=== PATIENT | female | born 1980 | race Caucasian/White ===

== ENCOUNTER 2022-07-12 20:06 | Observation (INO) | payer OTHER, SELFPAY ==
--- NOTE | ~2022-07-12 | CT_ITS ---
EXAMINATION: CT abdomen pelvis w con INDICATION: Epigastric pain TECHNIQUE: Computed tomographic images of the abdomen and pelvis were obtained after the administrati on of 100 cc of Omnipaque 350 intravenous contrast. The dose-length product (DLP) was 327.88 mGy-cm. Automated exposure control and iterative reconstruction technique were employed. COMPARISON: 05/20/2019 FINDINGS: The lung bases are clear. The heart size is normal. The liver is diffusely low in attenuati on when compared with the spleen, consistent with hepatic steatosis. Stones are present in the nondis tended gallbladder. The spleen, pancreas, and adrenal glands are normal. The kidneys are unremarkable . No pathologically enlarged abdominal or pelvic lymph nodes are identified. There is no free intrape ritoneal gas or evidence of bowel obstruction. There is a small fat-containing umbilical hernia. IMPRESSION: 1. Cholelithiasis without evidence of cholecystitis. 2. Diffuse hepatic steatosis. Reviewed, dictated and finalized at location A.
--- NOTE | ~2022-07-12 | XR_ITS ---
EXAMINATION: XR chest 2V DATE: 07/12/2022 21:22 INDICATION: Chest pain TECHNIQUE: PA and lateral views of the chest are obtained. COMPARISON: None available FINDINGS: The lungs are free of acute opacities. No pleural effusion or pneumothorax. The cardiomedia stinal silhouette is normal. The visualized bones and soft tissues are unremarkable. IMPRESSION: 1. No acute cardiopulmonary abnormality. Reviewed, dictated and finalized at location A.
--- NOTE | ~2022-07-12 | US_ITS ---
EXAMINATION: US abdomen limited DATE: 07/14/2022 15:22 INDICATION: Cholelithiasis, abdominal pain TECHNIQUE: Multiple grayscale and Doppler ultrasound images of the abdomen were obtained. COMPARISON: CT, 07/12/2022 FINDINGS: Bowel gas obscures visualization of the pancreas. The visualized portions of the pancreas a re unremarkable. The liver demonstrates increased echogenicity, heterogenous echotexture, and decreas ed through transmission. No surface nodularity. Normal hepatopetal flow in the main portal vein. Ston es are present in the nondistended gallbladder. There is no gallbladder wall thickening or pericholec ystic fluid. The normal common bile duct measures 4 mm. There was no sonographic Thrasher sign although sensitivity is limited by pain medication. IMPRESSION: 1. Cholelithiasis without additional findings of cholecystitis. 2. Diffuse hepatic steatosis. Reviewed, dictated and finalized at location A.
[2022-07-12 20:08] VITALS: BP 145/87; PULSE 99; RESP 18; TEMP 36.4; O2SAT 100
--- NOTE | 2022-07-12 20:25 | ED.ABDPAIN ---
HPI - Abdominal Pain General Chief Complaint: Abdominal Pain <TOBY Cruz Last Filed: 07/12/22 23:36> Stated Complaint: Epigastric pain, vomiting <TOBY Cruz Last Filed: 07/12/22 23:36> Time Seen by Provider: 07/12/22 20:16 <TOBY Cruz Last Filed: 07/12/22 23:36> Source: patient <TOBY Cruz Last Filed: 07/12/22 23:36> Mode of arrival: ambulatory <TOBY Cruz Last Filed: 07/12/22 23:36> Limitations: no limitations <TOBY Cruz Last Filed: 07/12/22 23:36> History of Present Illness HPI narrative: This is a 42 year old female that presents to the ER for epigastric pain ongoing over the last couple of weeks. Reports it is burning in nature. Worse after eating. Reports nausea and vomiting. Reports history of alcohol abuse and she hasn't had a drink since this morning. Reports tremors, anxiety and sweating. Denies fever. <TOBY Cruz Last Filed: 07/12/22 23:36> Related Data Home Medications: Home Medications Medication Instructions Recorded Confirmed gabapentin 100 mg capsule 300 mg PO TID 07/13/22 07/13/22 metoprolol succinate 25 mg 25 mg PO DAILY 07/13/22 07/13/22 tablet,extended release 24 hr <TOBY Cruz Last Filed: 07/12/22 23:36> Allergies/Adverse Reactions: Allergies Allergy/AdvReac Type Severity Reaction Status Date / Time metoclopramide Allergy Unknown Confusion Verified 07/13/22 01:42 <TOBY Cruz Last Filed: 07/12/22 23:36> Review of Systems Review of Systems: CONSTITUTIONAL: Denies fever CARDIOVASCULAR: Reports chest pain RESPIRATORY: Denies dyspnea. GASTROINTESTINAL: Reports abdominal pain, nausea, vomiting PSYCHIATRIC: Reports anxiety <TOBY Cruz Last Filed: 07/12/22 23:36> All systems reviewed & are unremarkable except as noted in HPI and below <Shyla Curiel PA-C - Last Filed: 07/12/22 23:36> [facility] Past Medical History Medical History: Medical History (Updated 07/12/22 @ 23:32 by Shyla Curiel PA-C) History of alcohol abuse History of hypertension <Shyla Curiel PA-C - Last Filed: 07/12/22 23:36> Family History Family History: Family History (Updated 07/13/22 @ 01:35 by Debi Mancera RN) Grandparent Depression Mother Depression <Shyla Curiel PA-C - Last Filed: 07/12/22 23:36> Social History Social History: Social History (Updated 07/12/22 @ 20:26 by Shyla Curiel PA-C) Smoking packs per day: 5 Smoking cigarettes per day: 100.0 Smoking status: Current every day smoker Alcohol intake: current Substance use: never Substance use type: does not use Last use: Drinks 3-4 bottles of wine daily Spiritual care concerns: No <Shyla Curiel PA-C - Last Filed: 07/12/22 23:36> Exam Narrative: GENERAL: Well-appearing, well-nourished, and in no acute distress. HEAD: Normocephalic, atraumatic. EYES: EOMI. ENT: Mucous membranes moist. Oropharynx without tonsillar hypertrophy exudate or other lesions. NECK: Supple. No adenopathy or masses CHEST: Clear to auscultation. No respiratory distress. No wheezes rales or rhonchi HEART: Regular rate and rhythm. No murmur heard. Normal peripheral pulses. ABDOMEN: Soft, nontender, nondistended, normal active bowel sounds. EXTREMITIES: Normal range of motion. No edema. SKIN: Warm, dry, no rash. NEURO: No focal deficits. Alert and oriented x3. PSYCH: Mildly anxious RECTAL: Hemoccult negative <Shyla Curiel PA-C - Last Filed: 07/12/22 23:36> Course PROGRAM ANALYST/PA Physician Supervision For this encounter, I have reviewed the [facility] documentation, treatment plan and medical decision making: I was available for consultation as needed. [] <Krishan Fuentes DO - Last Filed: 07/13/22 01:48> Consultations Consultation #1: Spoke with Dr. Lewis about patient work-up who accepts admission <Shyla Curiel PA-C - [facility]
--- NOTE | 2022-07-12 20:26 | ECG_ITS ---
Measurements Intervals [place] Rate: 79 P: 40 HI: 139 QRS: 20 QRSD: 75 T: 26 QT: 415 QTc: 477 Interpretive Statements SINUS RHYTHM NORMAL ECG COMPARED TO ECG 02/12/2019 19:40:13 T-WAVE ABNORMALITIES NOT APPRECIATED ANTERIOR LEADS Electronically Signed On 07-13-2022 14:35:39 CDT by Winston Tilley M.D.
[2022-07-12] MEDS: SODIUM CHLORIDE 0.9% IV 1,000 ML 999 ML IV CONT (20:30)
[2022-07-12] MEDS: ONDANSETRON INJ 4 MG/2 ML VIAL IV PUSH (20:30)
[2022-07-12] MEDS: PANTOPRAZOLE SODIUM IV 40 MG VIAL IV PUSH (20:30)
[2022-07-12 20:47] LABS: Appearance Urine Slightly Cloudy (Clear); Basophils Absolute Auto 0.1 K/mm3 (0.0-0.1); Basophils Percent Auto 0.8 % (0.2-1.2); Bilirubin Urine 1+ (Negative); Blood Urine 3+ (Negative); Color Urine Yellow (Yellow); Eosinophils Absolute Auto 0.1 K/mm3 (0-0.3); Eosinophils Percent Auto 1.9 % (0-4.4); Glucose Urine UA Negative (Negative); Hematocrit 38.5 % (37.0-47.0); Hemoglobin 11.4 g/dL (12.0-15.0); Immature Granulocyte Absolute 0.02 K/mm3 (0.00-0.031); Immature Granulocyte Percent A 0.3 % (0-0.5); Ketones Urine 1+ mg/dL (Negative); Leukocyte Esterase Ur Negative LEU/UL (Negative); Lymphocytes Percent Auto 29.2 % (18.3-44.2); Mean Corpuscular HGB Conc 29.6 g/dl (32-36); Mean Corpuscular Hemoglobin 24.2 pg (26-34); Mean Corpuscular Volume 81.6 fl (80-100); Mean Platelet Volume 9.4 fl (7.4-10.4); Monocytes Absolute Auto 0.8 K/mm3 (0.1-0.6); Monocytes Percent Auto 11.4 % (2.6-8.5); Neutrophils Absolute Auto 4.1 K/mm3 (1.3-6.7); Neutrophils Percent Auto 56.4 % (45.5-73.1); Nitrate Urine Negative (Negative); Platelet Count Result 232 k/mm3 (150-375); Protein Urine 2+ mg/dL (Negative); Red Blood Count 4.72 M/mm3 (4.2-5.4); Red Cell Distribution Width 19.8 % (11.5-14.5); Specific Grav Ur >= 1.030 (1.001-1.035); Urobilinogen Urine 0.2 mg/dL (<2.0); White Blood Count 7.2 K/mm3 (4.5-10.0)
[2022-07-12 20:54] LABS: Alanine Aminotransferase 31 U/L (6-35); Albumin Level 4.4 g/dL (3.5-5.1); Alkaline Phosphatase 79 U/L (38-126); Anion Gap 16 mmol/L (8-16); Aspartate Amino Transferase 63 U/L (14-36); Bacteria Urine Trace /hpf; Bilirubin,Total 0.3 mg/dL (0.2-1.3); Blood Urea Nitrogen 9 mg/dL (7-17); Calcium 8.5 mg/dL (8.4-10.2); Carbon Dioxide 25 mmol/L (22-30); Chloride 99 mmol/L (98-107); Estimated CRCL calculation 86 ml/min; Estimated Glomerular Filt Rate > 60; Glucose 87 mg/dL (65-110); Lipase 220 U/L (23-300); Mucus Urine Heavy /lpf; Potassium 4.3 mmol/L (3.4-5.0); Sodium 140 mmol/L (137-145); Squamous Epithelial Cell Urine Many /hpf (Few)
[2022-07-12 20:55] LABS: Add Urine Microscopic? YES
[2022-07-12 21:02] LABS: Amphetamine Screen Urine Negative (Negative); Barbiturate Screen Urine Negative (Negative); Benzodiazepines Screen Urine Negative (Negative); Cannabinoid Screen Urine Negative (Negative); Cocaine Screen Urine Negative (Negative); Hypochromasia 1+ (NORMAL); Methadone Screen Urine Negative (Negative); Opiate Screen Urine Negative (Negative); Ovalocytes 1+ (NORMAL); Phencyclidine Screen Urine Negative (Negative); Platelet Estimate Adequate (Adequate); Target Cells 1+ (NORMAL)
[2022-07-12 21:09] LABS: Ethanol 153 mg/dL (<10)
[2022-07-12 21:13] VITALS: BP 134/70; PULSE 80; RESP 16; TEMP 36.3; O2SAT 100
[2022-07-12 21:23] LABS: Prothrombin Time 12.9 Seconds (11.1-14.7)
[2022-07-12 21:26] LABS: Troponin I < 0.012 ng/mL (0.000-0.034)
[2022-07-12 22:09] VITALS: BP 136/70; PULSE 74; RESP 16; TEMP 36.6; O2SAT 100
[2022-07-12 23:00] VITALS: BP 122/80; PULSE 80; RESP 16; TEMP 36.3; O2SAT 98
--- NOTE | 2022-07-12 23:19 | PM.IMHP ---
H&P: HPI History of Present Illness Date/Time: 07/12/22 23:19 Chief Complaint: NERVOUSNESS Narrative: This is a 42-year-old female with past medical history significant for alcohol dependence, tobacco dependence. Patient drinks 2 bottles of wine daily, patient presented to the emergency room due to nervousness, tremulousness, tremors, anxiety, diarrhea, diarrhea started in the morning. [facility] Past Medical History Medical History (Updated 07/12/22 @ 23:32 by Shyla Curiel PA-C) History of alcohol abuse History of hypertension Family History Family History (Updated 07/13/22 @ 01:35 by Debi Mancera RN) Grandparent Depression Mother Depression Social History Social History (Updated 07/12/22 @ 20:26 by Shyla Curiel PA-C) Smoking packs per day: 5 Smoking cigarettes per day: 100.0 Smoking status: Current every day smoker Alcohol intake: current Substance use: never Substance use type: does not use Last use: Drinks 3-4 bottles of wine daily Spiritual care concerns: No Meds Home Medications and Allergies Home Medications Medication Instructions Recorded Confirmed Type gabapentin 100 mg capsule 300 mg PO TID 07/13/22 07/13/22 History metoprolol succinate 25 mg 25 mg PO DAILY 07/13/22 07/13/22 History tablet,extended release 24 hr Allergies Allergy/AdvReac Type Severity Reaction Status Date / Time metoclopramide Allergy Unknown Confusion Verified 07/13/22 01:42 Vital Signs Vital Signs - 24 hr 07/12/22 20:08 07/12/22 21:13 07/12/22 22:09 Temperature 97.5 F L 97.3 F L 97.9 F Pulse Rate 99 80 74 Respiratory Rate 18 16 16 Blood Pressure 145/87 H 134/70 136/70 Pulse Oximetry 100 100 100 Oxygen Delivery Room Air H&P: Results Labs Labs: Short CBC 07/12/22 Range/Units 20:34 WBC 7.2 (4.5-10.0) K/mm3 Hgb 11.4 L (12.0-15.0) g/dL Hct 38.5 (37.0-47.0) % Plt Count 232 (150-375) k/mm3 BMP 07/12/22 20:34 Sodium 140 Potassium 4.3 Chloride 99 Carbon Dioxide 25 BUN 9 Creatinine 0.70 Glucose 87 Calcium 8.5 Cardiac Enzymes 07/12/22 Range/Units 20:34 Troponin I < 0.012 (0.000-0.034) ng/mL Liver Function 07/12/22 Range/Units 20:34 Total Bilirubin 0.3 (0.2-1.3) mg/dL AST 63 H (14-36) U/L ALT 31 (6-35) U/L Alkaline Phosphatase 79 (38-126) U/L Albumin 4.4 (3.5-5.1) g/dL Urine 07/12/22 Range/Units 20:34 Urine Color Yellow (Yellow) Urine Appearance Slightly cloudy (Clear) Urine pH 6.0 (5.0-9.0) Ur Specific [place] >= 1.030 (1.001-1.035) Urine Protein 2+ H (Negative) mg/dL Urine Glucose (UA) Negative (Negative) mg/dL Assessment and Plan Assessment and plan (1) Alcohol dependence: Code(s): F10.20 - Alcohol dependence, uncomplicated Status: Acute (2) Nausea and vomiting: Code(s): R11.2 - Nausea with vomiting, unspecified Status: Acute (3) Epigastric pain: Code(s): R10.13 - Epigastric pain Status: Acute (4) Alcohol withdrawal: Code(s): F10.939 - Alcohol use, unspecified with withdrawal, unspecified Status: Acute
[2022-07-12 23:45] VITALS: BP 113/78; PULSE 84; RESP 16; TEMP 36.3; O2SAT 97
[2022-07-12] MEDS: LORazepam INJ (*CRX) 2 MG/ML VIAL 1 MG IV PUSH (23:45)
[2022-07-12] MEDS: THIAMINE HCL INJ 100 MG, FOLIC ACID INJ 1 MG, MULTIVITAMINS-12 INJ VIAL 1 5 ML, MULTIVI... IV CONT (23:53)
[2022-07-12 23:58] LABS: Glucose Point of Care 68 mg/dl (65-105)
[2022-07-13] VITALS (12 sets, daily range): BP systolic 94–127; BP diastolic 69–88; PULSE 64–83; RESP 12–20; TEMP 36.1–37.3; O2SAT 96–98; BMI 24.2
--- NOTE | 2022-07-13 01:25 | ADMGEN ---
This patient, Harleen Vieira, was admitted to 2 Medical Room [facility] @ 0115. Patient/family oriented to hospital policies and general routines including ID bracelet, bed and alarms, visiting hours, pain management, procedures, bathroom and other care routines, personal items, smoking policy, room service/diet, and visiting hours. Information on how to activate the Rapid Response Team has been discussed. Patient/Family are encouraged to report perceived risks to care and to ask questions if they do not understand what they are told or what they should do.
[2022-07-13 01:50] LABS: Glucose Point of Care 68 mg/dl (65-105)
[2022-07-13 01:50] LABS: Glucose Point of Care 79 mg/dl (65-105)
[2022-07-13] MEDS: chlordiazePOXIDE (*CRX) 25 MG CAPSULE 50 MG PO ×4 (06:10→23:48)
--- NOTE | 2022-07-13 07:47 | PM.IMPN ---
Progress Note: A&P Assessment and Plan (1) Alcohol dependence: Code(s): F10.20 - Alcohol dependence, uncomplicated Status: Acute Assessment and Plan: initiate CIWA protocol Start Librium q6hr PRN ativan Monitor neuro status Monitor vital signs and I and O's p.r.n. Zofran, melatonin Tylenol Consult Case Management to speak about possible resources for alcohol dependence (2) Nausea and vomiting: Code(s): R11.2 - Nausea with vomiting, unspecified Status: Acute Assessment and Plan: supportive care (3) Epigastric pain: Code(s): R10.13 - Epigastric pain Status: Acute Assessment and Plan: Pantoprazole Daily Diet: clear liquid Supportive care (4) Alcohol withdrawal: Code(s): F10.939 - Alcohol use, unspecified with withdrawal, unspecified Status: Acute Assessment and Plan: 2/2 above (5) Abnormal urinalysis: Code(s): R82.90 - Unspecified abnormal findings in urine Status: Acute Assessment and Plan: Empirically started Rocephin 1 g IV daily, de-escalate when appropriate CBC, CMP, UA, reviewed pending urine culture Follow temp curve, cultures, WBC, and VS Subjective Date/time seen: 07/13/22 07:47 patient was lying in bed this morning. She reports that she has been symptom free since admission. Patient was started on Librium q.6 hours with p.r.n. Ativan. Ppi was started on the patient as well. no acute events reported by RN during the night. Patient reports that this has happened to her before in the past on multiple occasions. She has been to rehab 3 times. She would be interested in outpatient therapy again. Will consult Case Management to speak about possible resources. Review of Systems Review of Systems: All systems reviewed & are unremarkable except as noted in HPI and below Exam Narrative: General: No acute distress. Mental Status: Awake, alert and oriented to person, place, and time with clear speech. Skin: Skin in warm, dry and intact without rashes or lesions. Head: Normocephalic and atraumatic. Eyes: Conjunctivae are clear without exudates or hemorrhage. Sclera is non-icteric. EOM are intact, PERRLA. Ears: The external ear and canal are non-tender and without swelling or discharge. Nose: Nasal mucosa is pink and moist. Septum midline. Nares patent bilaterally. Throat: Oral mucosa pink and moist with good dentition. Tongue midline. Neck: The neck supple without adenopathy. Trachea midline. No JVD. Cardiac: S1 and S2 regular rate and rhythm. No murmurs, gallops, or rubs auscultated. Respiratory: Chest wall symmetric, nontender and without deformity or trauma. Respirations even and unlabored. Lung sounds are clear to auscultation in all lobes bilaterally without wheezes, rhonchi, or rales. Abdominal: Abdomen soft, round and non-tender to palpation. Bowel sounds present and normoactive in all 4 quadrants. Spine: Neck and back with grossly normal curvature, no deformity in appearance or signs of trauma. Extremities: Upper and lower extremities atraumatic without tenderness or deformity. Full range of motion and muscle strength 5/5 to all extremities bilaterally. Neurological: Full and symmetric motor and light touch sensation bilaterally. Cranial nerves II-XII grossly intact. Objective Data Vital Signs Vital Signs: Vital Signs - 24 hr 07/12/22 20:08 07/12/22 21:13 07/12/22 22:09 Temperature 97.5 F L 97.3 F L 97.9 F Pulse Rate 99 80 74 Respiratory Rate 18 16 16 Blood Pressure 145/87 H 134/70 136/70 Pulse Oximetry 100 100 100 Oxygen Delivery Room Air 07/12/22 23:45 07/12/22 23:00 07/13/22 00:30 Temperature 97.3 F L 97.3 F L 98.3 F Pulse Rate 84 80 83 Respiratory Rate 16 16 16 Blood Pressure 113/78 122/80 113/82 Pulse Oximetry 97 98 98 Oxygen Delivery 07/13/22 01:38 07/13/22 02:04 07/13/22 03:58 Temperature 98 F 97.8 F Pulse Rate 77 71 77 Respiratory Rate 16 16 Blood Pressure
[2022-07-13] MEDS: METOPROLOL SUCCINATE EXT REL 25 MG TABCR PO (08:22)
[2022-07-13] MEDS: GABAPENTIN 300 MG CAPSULE PO ×3 (08:22→17:10)
[2022-07-13] MEDS: PANTOPRAZOLE SODIUM IV 40 MG VIAL IV PUSH (08:22)
[2022-07-13 08:34] LABS: Glucose Point of Care 71 mg/dl (65-105)
[2022-07-13] MEDS: THIAMINE HCL INJ 100 MG, FOLIC ACID INJ 1 MG, MULTIVITAMINS-12 INJ VIAL 1 5 ML, MULTIVI... IV CONT (10:37)
[2022-07-13 11:52] LABS: Glucose Point of Care 81 mg/dl (65-105)
[2022-07-13 18:16] LABS: Glucose Point of Care 155 mg/dl (65-105)
[2022-07-13] MEDS: diazePAM INJ (*CRX) 10 MG/2 ML SYRINGE 5 MG IV PUSH (21:15)
[2022-07-13 23:56] LABS: Glucose Point of Care 149 mg/dl (65-105)
[2022-07-14] VITALS (10 sets, daily range): BP systolic 94–111; BP diastolic 59–74; PULSE 72–98; RESP 18; TEMP 35.9–37.1; O2SAT 98–100
[2022-07-14 05:25] LABS: Basophils Percent Auto 0.5 % (0.2-1.2); Eosinophils Absolute Auto 0.2 K/mm3 (0-0.3); Eosinophils Percent Auto 3.8 % (0-4.4); Hematocrit 36.6 % (37.0-47.0); Hemoglobin 10.8 g/dL (12.0-15.0); Immature Granulocyte Absolute 0.02 K/mm3 (0.00-0.031); Immature Granulocyte Percent A 0.3 % (0-0.5); Lymphocytes Absolute Auto 2.12 K/mm3 (0.9-3.2); Lymphocytes Percent Auto 33.9 % (18.3-44.2); Mean Corpuscular HGB Conc 29.5 g/dl (32-36); Mean Corpuscular Hemoglobin 24.4 pg (26-34); Mean Corpuscular Volume 82.8 fl (80-100); Mean Platelet Volume 10.5 fl (7.4-10.4); Monocytes Absolute Auto 0.8 K/mm3 (0.1-0.6); Monocytes Percent Auto 12.2 % (2.6-8.5); Neutrophils Absolute Auto 3.1 K/mm3 (1.3-6.7); Neutrophils Percent Auto 49.3 % (45.5-73.1); Platelet Count Result 177 k/mm3 (150-375); Red Blood Count 4.42 M/mm3 (4.2-5.4); Red Cell Distribution Width 19.7 % (11.5-14.5); White Blood Count 6.3 K/mm3 (4.5-10.0)
[2022-07-14] MEDS: chlordiazePOXIDE (*CRX) 25 MG CAPSULE 50 MG PO ×3 (05:36→17:28)
[2022-07-14 05:39] LABS: Alanine Aminotransferase 20 U/L (6-35); Albumin Level 3.2 g/dL (3.5-5.1); Alkaline Phosphatase 58 U/L (38-126); Anion Gap 4 mmol/L (8-16); Aspartate Amino Transferase 32 U/L (14-36); Bilirubin,Total 0.3 mg/dL (0.2-1.3); Blood Urea Nitrogen 9 mg/dL (7-17); Calcium 8.5 mg/dL (8.4-10.2); Carbon Dioxide 32 mmol/L (22-30); Chloride 99 mmol/L (98-107); Estimated CRCL calculation 86 ml/min; Estimated Glomerular Filt Rate > 60; Glucose 116 mg/dL (65-110); Potassium 3.9 mmol/L (3.4-5.0); Sodium 135 mmol/L (137-145)
[2022-07-14 05:41] LABS: Glucose Point of Care 100 mg/dl (65-105)
[2022-07-14] MEDS: PANTOPRAZOLE SODIUM IV 40 MG VIAL IV PUSH (08:34)
[2022-07-14] MEDS: METOPROLOL SUCCINATE EXT REL 25 MG TABCR PO (08:34)
[2022-07-14] MEDS: GABAPENTIN 300 MG CAPSULE PO ×3 (08:35→17:29)
[2022-07-14 12:27] LABS: Glucose Point of Care 137 mg/dl (65-105)
--- NOTE | 2022-07-14 13:16 | PM.IMPN ---
Progress Note: A&P Assessment and Plan (1) Epigastric pain: Code(s): R10.13 - Epigastric pain Status: Acute Assessment and Plan: Present on admission. Improving. CT abd/pelvis shows cholelithiasis without cholecystitis, diffuse hepatic steatosis, no acute intraabdominal disease noted. Continue protonix daily. Check RUQ US. GI has been consulted for globus sensation and likely EGD tomorrow. (2) Nausea and vomiting: Code(s): R11.2 - Nausea with vomiting, unspecified Status: Acute Assessment and Plan: Secondary to alcohol withdrawal and ?gallbladder disease. PRN Zofran IV (3) Alcohol dependence: Code(s): F10.20 - Alcohol dependence, uncomplicated Status: Acute Assessment and Plan: Patient drinks 2-4 bottles of wine per day, per notes. She has gone to rehab 3 times. She plans to pursue substance abuse and trauma counseling. Continue CIWA protocol - CIWA score 1 to 5 in the past 24 hours. Continue Librium 50 mg q6hr and PRN valium Q4 hours. On Gabapentin 300 mg TID that can help with withdrawal symptoms as well. 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 (4) Globus sensation: Code(s): R09.89 - Other specified symptoms and signs involving the circulatory and respiratory systems Status: Acute Assessment and Plan: C/o globus sensation with food, pills and liquids. consult GI for evaluation and recommendations. (5) Alcohol withdrawal: Code(s): F10.939 - Alcohol use, unspecified with withdrawal, unspecified Status: Acute Assessment and Plan: As above (6) Abnormal urinalysis: Code(s): R82.90 - Unspecified abnormal findings in urine Status: Acute Assessment and Plan: UA many epi cells, no nitrates and no leukocytes. Urine culture without growth. No antibiotics initiated. 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 Plan CODE STATUS: FULL CODE Disposition: Home Time Spent With Patient Time with patient: 15 - 25 minutes Subjective Date/time seen: 07/14/22 13:16 Interval history: Patient is a 42 yo female with medical history of alcohol dependence, tobacco dependence and hypertension. She presented to the ED for evaluation of abdominal pain. Patient reports abdominal pain is improved, but still present. Cholelithiasis was noted on CT scan upon admission. Patient denies nausea or emesis. She does endorse feeling like food is stuck in upper and lower throat. She had an EGD approximately 10 years ago for similar sensation but no intervention was needed. She plans to seek outpatient substance abuse and trauma counseling and reports she has received resource information. She has been to rehab 3 times and is aware of the process. She is not interested in [email or web address]. Review of Systems Review of Systems: All systems reviewed & are unremarkable except as noted in HPI and below Exam Narrative: General: No acute distress. Mental Status: Awake, alert and oriented to person, place, and time with clear speech. Irritable at times. Neutral affect. Skin: warm, dry and intact without rashes or lesions. No open wounds. Normal for ethnicity. No cyanosis. Head: Normocephalic and atraumatic. Eyes: Sclera is non-icteric. EOM are intact, PERRLA. Ears: The external ear without swelling or discharge. Grossly normal hearing. Nose: Nasal mucosa is pink and moist. Nares patent bilaterally. Throat: Oral mucosa pink and moist. Tongue midline. Oropharynx without abnormality. Neck: Supple. No JVD. Cardiac: S1 and S2 regular rate and rhythm. No murmurs, gallops, or rubs auscultated. Respiratory: Respirations even and unlabored. Lung sounds are clear to auscultation in all lobes bilaterally without wheezes, rhonchi, or rales. No
--- NOTE | 2022-07-14 14:13 | WPDGICN ---
Assessment and Plan Assessment and plan (1) Epigastric pain: Code(s): R10.13 - Epigastric pain Status: Acute Assessment and Plan: will assess with egd tomorrow probably aggravated by alcohol abuse assess if esophagitis, ulcer, etc on ppi (2) Alcohol withdrawal: Code(s): F10.939 - Alcohol use, unspecified with withdrawal, unspecified Status: Acute Assessment and Plan: librium as needed, she is calm now (3) Odynophagia: Code(s): R13.10 - Dysphagia, unspecified Status: Acute Assessment and Plan: assess with egd if esophagitis, ring, etc (4) Dysphagia: Code(s): R13.10 - Dysphagia, unspecified Status: Acute (5) GERD (gastroesophageal reflux disease): Code(s): K21.9 - Gastro-esophageal reflux disease without esophagitis Status: Acute GI Consult Note Consult date/time: 07/14/22 14:13 Reason for consult: odynophagia, gerd, alcoholism HPI: Harleen Vieira is a 42 year old female with history significant for?alcohol dependence (drinks 2 bottles of? wine daily), tobacco dependent who came to the emergency room due to nervousness, tremulousness, tremors, anxiety and also ongoing epigastric discomfort with pain after swallowing and reflux, also had nausea, also sensation few days ago that had something stuck at neck level. She had EGD but several years ago and is not taking anything for reflux. Liver enzymes normal, platelets 177. CT scan a/p reviewed, Cholelithiasis without evidence of cholecystitis, diffuse hepatic steatosis. Review of Systems Constitutional: Constitutional: Denies chills Eyes: Eyes: Denies blurry vision ENT: Reports Normal hearing present Cardiovascular: Cardiovascular: Denies chest pain Respiratory: Respiratory: Denies chest congestion Gastrointestinal: Gastrointestinal: Reports abdominal pain and Reports nausea Genitourinary: Genitourinary: Denies hematuria Musculoskeletal: Musculoskeletal: Denies back pain Integumentary/Breasts: Skin/Breast: Denies rash Neurologic: Denies Abnormal speech present Psychiatric: Psychiatric: Reports anxiety [facility] Past Medical History Medical History (Updated 07/14/22 @ 14:17 by Vance Dodd MD) Dysphagia GERD (gastroesophageal reflux disease) History of alcohol abuse History of hypertension Odynophagia Family History Family History (Updated 07/13/22 @ 01:35 by Debi Mancera RN) Grandparent Depression Mother Depression Social History Social History (Updated 07/12/22 @ 20:26 by Shyla Curiel PA-C) Smoking packs per day: 5 Smoking cigarettes per day: 100.0 Smoking status: Current every day smoker Alcohol intake: current Substance use: never Substance use type: does not use Last use: Drinks 3-4 bottles of wine daily Spiritual care concerns: No Meds Home Medications and Allergies Home Medications Medication Instructions Recorded Confirmed Type gabapentin 100 mg capsule 300 mg PO TID 07/13/22 07/13/22 History metoprolol succinate 25 mg 25 mg PO DAILY 07/13/22 07/13/22 History tablet,extended release 24 hr Allergies Allergy/AdvReac Type Severity Reaction Status Date / Time metoclopramide Allergy Unknown Confusion Verified 07/13/22 01:42 Vital Signs Vital Signs - 24 hr 07/13/22 16:00 07/13/22 16:00 07/13/22 21:25 Temperature 97 F L Pulse Rate 78 83 Pulse Rate [Bilateral Pedal (Dorsalis Pedis) Palpation] 72 Respiratory Rate 20 Blood Pressure 94/69 L Pulse Oximetry 98 Oxygen Delivery 07/13/22 20:00 07/13/22 20:00 07/14/22 00:00 Temperature Pulse Rate 74 84 Pulse Rate [Bilateral Pedal (Dorsalis Pedis) Palpation] Respiratory Rate Blood Pressure Pulse Oximetry Oxygen Delivery Room Air 07/14/22 04:15 07/14/22 04:00 07/14/22 08:00 Temperature 96.6 F L Pulse Rate 77 75 Pulse Rate [Bilateral Pedal (Dorsalis Pedis) Palpation] Respiratory Rate 18
[2022-07-14 18:34] LABS: Glucose Point of Care 168 mg/dl (65-105)
[2022-07-15] VITALS (10 sets, daily range): BP systolic 99–112; BP diastolic 66–82; PULSE 72–100; RESP 16–23; TEMP 36.1–36.3; O2SAT 98–100
[2022-07-15] MEDS: chlordiazePOXIDE (*CRX) 25 MG CAPSULE 50 MG PO ×3 (00:05→12:33)
[2022-07-15] MEDS: diazePAM INJ (*CRX) 10 MG/2 ML SYRINGE 5 MG IV PUSH (00:09)
[2022-07-15 00:26] LABS: Glucose Point of Care 127 mg/dl (65-105)
[2022-07-15 05:50] LABS: Glucose Point of Care 147 mg/dl (65-105)
--- NOTE | 2022-07-15 07:53 | PC.NURSE ---
Report called to [facility].
[2022-07-15 08:21] LABS: Glucose Point of Care 108 mg/dl (65-105)
[2022-07-15] MEDS: GABAPENTIN 300 MG CAPSULE PO ×2 (08:38→12:28)
[2022-07-15] MEDS: PANTOPRAZOLE SODIUM IV 40 MG VIAL IV PUSH (08:39)
[2022-07-15] MEDS: METOPROLOL SUCCINATE EXT REL 25 MG TABCR PO (08:39)
--- NOTE | 2022-07-15 10:45 | PC.NURSE ---
To GI Lab via wheelchair.
--- NOTE | 2022-07-15 11:09 | WPDANESEPPF ---
Anes - Initial Pre Proc Eval Procedure: Operation Date: 07/15/22 12:30 Proposed Procedures p Esophagogastroduodenoscopy EGD - Vance Dodd MD Date/Time: 07/15/22 11:09 Surgeon: Keyshawn Lewis MD Pre Op Diagnosis: Alcoholic gastritis/alcohol abuse/withdrawal Patient Data Age: 42 Gender: F Height: 1.68 m Weight: 68 kg Last Vital Signs Temp 96.9 F L 07/15/22 05:40 Pulse 72 07/15/22 08:39 Resp 16 07/15/22 08:39 BP 101/66 07/15/22 05:40 Pulse Ox 99 07/15/22 08:39 O2 Del Method Room Air 07/15/22 08:39 Allergies Allergy/AdvReac Type Severity Reaction Status Date / Time metoclopramide Allergy Unknown Confusion Verified 07/15/22 11:02 Home Medications Medication Instructions Recorded Confirmed Type gabapentin 100 mg capsule 300 mg PO TID 07/13/22 07/13/22 History metoprolol succinate 25 mg 25 mg PO DAILY 07/13/22 07/13/22 History tablet,extended release 24 hr Laboratory Tests 07/14/22 07/14/22 07/15/22 12:22 18:29 00:05 POC Capillary Glucose 137 mg/dl H mg/dl 168 mg/dl H mg/dl 127 mg/dl H mg/dl (65-105) (65-105) (65-105) 07/15/22 07/15/22 05:43 08:18 POC Capillary Glucose 147 mg/dl H mg/dl 108 mg/dl H mg/dl (65-105) (65-105) Patient hx anesthesia problems: none Family hx anesthesia problems: none Results Review: All pre-operative results and documents have been reviewed as part of the pre-operative evaluation. [facility] Past Medical History Medical History (Updated 07/14/22 @ 14:17 by Vance Dodd MD) Dysphagia GERD (gastroesophageal reflux disease) History of alcohol abuse History of hypertension Odynophagia Family History Family History (Updated 07/13/22 @ 01:35 by Debi Mancera RN) Grandparent Depression Mother Depression Social History Social History (Updated 07/12/22 @ 20:26 by Shyla Curiel PA-C) Smoking packs per day: 5 Smoking cigarettes per day: 100.0 Smoking status: Current every day smoker Alcohol intake: current Substance use: never Substance use type: does not use Last use: Drinks 3-4 bottles of wine daily Spiritual care concerns: No Anes - Eval Final PreProcedure Day of Procedure 07/15/22 11:09 Patient weight: normal Heart: regular rate and rhythm Lungs: clear to auscultation Airway: Mallampati scale class II Neurological: alert and oriented Last oral intake: >/= 8 hours ASA classification: II Emergent: no Anesthetic plan: proceed Anesthesia type and monitoring: general GIVS and standard monitoring Results Review: All pre-operative results and documents have been reviewed as part of the pre-operative evaluation. Informed Consent: The patient's anesthetic plan and its attendant risks and benefits were discussed with the patient/family/POA. Questions were solicited and answers provided to the satisfaction of the patient/family/POA.
--- NOTE | 2022-07-15 11:12 | PC.NURSE ---
To GI Lab via wheelchair.
[2022-07-15] MEDS: LACTATED RINGERS 1,000 ML 150 ML IV CONT (11:13)
--- NOTE | 2022-07-15 12:00 | PC.NURSE ---
Returned from GI Lab via stretcher.
--- NOTE | 2022-07-15 12:16 | PM.DS ---
DS: Admitting Diagnosis Discharge Date 07/15/22 1353 Admitting Diagnosis Intractable nausea and vomiting Alcohol withdrawal Alcohol dependence Epigastric pain DS: Discharge Diagnosis Discharge Diagnosis (1) Erosive gastritis: Code(s): K29.60 - Other gastritis without bleeding Status: Acute (2) Nausea and vomiting: Qualifiers: Vomiting type: unspecified Qualified Code(s): R11.2 - Nausea with vomiting, unspecified Code(s): R11.2 - Nausea with vomiting, unspecified Status: Acute (3) Odynophagia: Code(s): R13.10 - Dysphagia, unspecified Status: Acute (4) Cholelithiasis without cholecystitis: Code(s): K80.20 - Calculus of gallbladder without cholecystitis without obstruction Status: Acute (5) Alcohol withdrawal: Qualifiers: Complication of substance-induced condition: uncomplicated Qualified Code(s): F10.930 - Alcohol use, unspecified with withdrawal, uncomplicated Code(s): F10.939 - Alcohol use, unspecified with withdrawal, unspecified Status: Acute (6) Abnormal urinalysis: Code(s): R82.90 - Unspecified abnormal findings in urine Status: Acute Assessment and Plan: (7) Alcohol dependence: Code(s): F10.20 - Alcohol dependence, uncomplicated Status: Chronic (8) Tobacco dependence: Code(s): F17.200 - Nicotine dependence, unspecified, uncomplicated Status: Chronic (9) Hepatic steatosis: Code(s): K76.0 - Fatty (change of) liver, not elsewhere classified Status: Chronic DS: Summary Hospital Course Reason for hospitalization: Abdominal pain Hospital Course: Harleen Vieira is a 42-year-old female with past medical history significant for?alcohol and tobacco dependence.? She reports drinking 2-3 bottles of?wine daily. She presented to the emergency room for evaluation of epigastric pain for several weeks, as well as nervousness, tremulousness, tremors, sweating, anxiety, and diarrhea that started on the day of admission. In the ED, vitals were T97.5F, HR 99, RR 18, BP 145/97, and SpO2 100% on room air. Lab work showed unremarkable CBC, CMP, lipase, toxicology, and troponin. Ethyl alcohol level was 153 and UA showed 10-15 WBC, trace bacteria and many epi cells. CT of the abdomen showed hepatic steatosis and cholelithiasis without cholecystitis; pancreas was unremarkable. EKG showed NSR with ischemic changes. The patient was referred for observation. CIWA protocol and scheduled librium Q6 hours was initiated. IV protonix and clear liquid diet was started. Antibiotics were held due to UA without nitrates, leukocytes or pt c/o dysuria, hematuria, urgency or frequency. Urine culture was negative for growth. RUQ US was obtained and noted presence of cholelithiasis, without gallbladder wall thickening, common bile duct dilation or obstruction. She did c/o globus sensation to upper neck and sub-sternum after eating. GI was consulted. Patient underwent EGD that showed moderate ulcerative gastritis of the stomach body and antrum. Gastritis had moderate erythematous, edematous, erosive and ulcerative changes without evidence of bleeding. H.Pylori samples were taken. Mild duodenitis was also noted. Patient was recommend to continue protonix 40 mg PO BID for at least 3 months with follow up EGD in 3 months and abstinence from alcohol. No stricture, ring or esophageal obstruction was noted. Patient returned to the floor with advanced diet that was tolerated well. Her abdominal pain, N/V, tremors, and anxiety resolved. She was counseled on alcohol abstinence and tobacco cessation. She was counseled on low fat diet. Care coordination was consulted for substance abuse counseling. The patient reported that she had all the materials she needed at this time. Patent was discharged home in stable condition, tolerating diet and without c/o abd pain. Time spent discussing smoking cessation with patient:
[2022-07-15 12:30] LABS: Glucose Point of Care 89 mg/dl (65-105)
== END 2022-07-15 14:25 | disposition home or self-care (01) ==
LOC: ANHED 23:36 → ANH2MED 07-13 01:41
PROVIDERS: Internal Medicine Gastroenterology; Nurse Practitioner Family; Physician Assistant; Admitting Provider Internal Medicine; Emergency Provider Emergency Medicine; PCP Family Medicine; Visit Provider Nurse Practitioner Family
PROC: 0DJ08ZZ Inspection of Upper Intestinal Tract, Via Natural or Artificial Opening Endoscopic (ICD-10-PCS; CPT 43235; principal; 2022-07-15 12:30)
DX: K29.70 Gastritis, unspecified, without bleeding (principal); K29.80 Duodenitis without bleeding; R13.10 Dysphagia, unspecified; K80.20 Calculus of gallbladder without cholecystitis without obstruction; F10.239 Alcohol dependence with withdrawal, unspecified; Y90.6 Blood alcohol level of 120-199 mg/100 ml; R82.90 Unspecified abnormal findings in urine; A04.8 Other specified bacterial intestinal infections; F17.210 Nicotine dependence, cigarettes, uncomplicated; K76.0 Fatty (change of) liver, not elsewhere classified; I10 Essential (primary) hypertension; B96.81 Helicobacter pylori [H. pylori] as the cause of diseases classified elsewhere; D72.829 Elevated white blood cell count, unspecified; D64.9 Anemia, unspecified; Z79.899 Other long term (current) drug therapy
CPT/HCPCS: 43239; 36415; 71046; 74177; 76705; 80053; 80307; 81001; 81025; 82948; 83690; 84484; 85025; 85610; 85730; 87081; 87086; 88305; 88342; 93005; 96361; 96374; 96375; 96376; 99285; A9270; C9113; G0378; G0379; J2060; J2405; J2704; J3360; J3411; J3475; J7030; J7120; Q9967

== ENCOUNTER 2022-12-25 16:59 | Emergency (ER) | payer OTHER, SELFPAY ==
[2022-12-25 17:07] VITALS: BP 143/88; PULSE 99; RESP 18; TEMP 36.4; O2SAT 98
--- NOTE | 2022-12-25 17:41 | ED.ALCOHOL ---
HPI - Alcohol General Chief Complaint: Alcohol Stated Complaint: ETOH/dehydrated Time Seen by Provider: 12/25/22 17:19 History of Present Illness HPI narrative: Patient is a 42-year-old female presenting with concerns for dehydration. Patient states that she has a long history of alcohol use disorder and she has been drinking a lot over the last month. States that she has been drinking at least a bottle and a half of wine per day. States that she is concerned that she is dehydrated. States that she wants to try to stop drinking. States that she has been to rehab 3 times and she is concerned that it does not work for her. She reports acid reflux but denies chest pain or abdominal pain. Reports some nausea but no vomiting. No fevers or chills, shortness of breath, cough, diarrhea, dysuria, leg swelling. Patient states that she has withdrawn from alcohol in the past but she has never had a seizure. Related Data Home Medications Medication Instructions Recorded Confirmed gabapentin 100 mg capsule 300 mg PO TID 07/13/22 07/13/22 metoprolol succinate 25 mg 25 mg PO DAILY 07/13/22 07/13/22 tablet,extended release 24 hr Allergies Allergy/AdvReac Type Severity Reaction Status Date / Time metoclopramide Allergy Unknown Confusion Verified 07/15/22 11:02 Review of Systems Review of Systems: All systems reviewed & are unremarkable except as noted in HPI and below PMFSH Past Medical History Medical History Dysphagia GERD (gastroesophageal reflux disease) History of alcohol abuse History of hypertension Odynophagia Family History Family History Grandparent Depression Mother Depression Social History Social History Smoking packs per day: 5 Smoking cigarettes per day: 100.0 Smoking status: Current every day smoker Alcohol intake: current Substance use: never Substance use type: does not use Last use: Drinks 3-4 bottles of wine daily Spiritual care concerns: No Exam Narrative: GENERAL: Female laying in bed in no acute distress, intermittently tearful HEAD: Normocephalic, atraumatic. EYES: PERRLA and EOMI. ENT: Nares clear, no rhinorrhea or epistaxis. Mucous membranes moist. no tongue fasciculations NECK: Supple. CHEST: Clear to auscultation. No respiratory distress. HEART: Regular rate and rhythm. No murmur heard. Normal peripheral pulses. ABDOMEN: Soft, nontender, nondistended, normal active bowel sounds. EXTREMITIES: Normal range of motion. No edema. no tremors SKIN: Warm, dry, no rash. NEURO: No focal deficits. Alert and oriented x3. PSYCH: Intermittently tearful, anxious Course Vital Signs Vital signs: Vital Signs Temperature 97.6 F 12/25/22 17:07 Pulse Rate 99 12/25/22 17:07 Respiratory Rate 18 12/25/22 17:07 Blood Pressure 143/88 H 12/25/22 17:07 Pulse Oximetry 98 12/25/22 17:07 Oxygen Delivery Room Air 12/25/22 17:07 Temperature 97.6 F 12/25/22 17:07 Pulse Rate 85 12/25/22 22:30 Respiratory Rate 16 12/25/22 22:30 Blood Pressure 108/62 12/25/22 22:30 Pulse Oximetry 98 12/25/22 22:30 Oxygen Delivery Room Air 12/25/22 17:07 MDM - Alcohol MDM Narrative Medical decision making narrative: Patient is a 42-year-old female with a history of alcohol use disorder presenting with concerns for dehydration. Exam remarkable for the above. Blood work with an ethanol level in the 300s. Remainder of blood work is unremarkable. Patient has received several liters of fluids as well as a dose of Librium. Patient is sleeping comfortably on my reevaluation. She is no longer hypertensive. She continues to be tremor free. No tongue fasciculations. Do not think that she is actively withdrawing at this time. Feel she is safe for an outpatient Librium taper. Advised that she call
[2022-12-25] MEDS: SODIUM CHLORIDE 0.9% IV 1,000 ML 999 ML IV CONT ×2 (18:19→19:56)
[2022-12-25] MEDS: LORazepam INJ (*CRX) 2 MG/ML VIAL 1 MG IV PUSH (18:20)
[2022-12-25] MEDS: FAMOTIDINE 20 MG/2 ML VIAL IV PUSH (18:21)
[2022-12-25] MEDS: chlordiazePOXIDE (*CRX) 25 MG CAPSULE 50 MG PO (18:21)
[2022-12-25 18:43] LABS: Basophils Absolute Auto 0.1 K/mm3 (0.0-0.1); Basophils Percent Auto 1.6 % (0.2-1.2); Eosinophils Percent Auto 0.7 % (0-4.4); Hematocrit 43.4 % (37.0-47.0); Hemoglobin 13.1 g/dL (12.0-15.0); Immature Granulocyte Absolute 0.02 K/mm3 (0.00-0.031); Immature Granulocyte Percent A 0.5 % (0-0.5); Lymphocytes Absolute Auto 1.64 K/mm3 (0.9-3.2); Lymphocytes Percent Auto 37.4 % (18.3-44.2); Mean Corpuscular HGB Conc 30.2 g/dl (32-36); Mean Corpuscular Hemoglobin 24.3 pg (26-34); Mean Corpuscular Volume 80.5 fl (80-100); Mean Platelet Volume 9.5 fl (7.4-10.4); Monocytes Absolute Auto 0.3 K/mm3 (0.1-0.6); Monocytes Percent Auto 7.1 % (2.6-8.5); Neutrophils Absolute Auto 2.3 K/mm3 (1.3-6.7); Neutrophils Percent Auto 52.7 % (45.5-73.1); Platelet Count Result 276 k/mm3 (150-375); Red Blood Count 5.39 M/mm3 (4.2-5.4); Red Cell Distribution Width 18.6 % (11.5-14.5); White Blood Count 4.4 K/mm3 (4.5-10.0)
[2022-12-25 18:52] LABS: Add Urine Microscopic? YES; Appearance Urine Cloudy (Clear); Bilirubin Urine 1+ (Negative); Blood Urine 3+ (Negative); Color Urine Red (Yellow); Glucose Urine UA Negative (Negative); Ketones Urine 3+ mg/dL (Negative); Leukocyte Esterase Ur Negative LEU/UL (Negative); Nitrate Urine Negative (Negative); Protein Urine 3+ mg/dL (Negative); Specific Grav Ur 1.015 (1.001-1.035); Urobilinogen Urine 0.2 mg/dL (<2.0); pH Urine 5.5 (5.0-9.0)
[2022-12-25 18:54] LABS: Alanine Aminotransferase 58 U/L (6-35); Alkaline Phosphatase 70 U/L (38-126); Anion Gap 18 mmol/L (8-16); Aspartate Amino Transferase 159 U/L (14-36); Bilirubin,Total 0.4 mg/dL (0.2-1.3); Blood Urea Nitrogen 7 mg/dL (7-17); Calcium 8.1 mg/dL (8.4-10.2); Carbon Dioxide 23 mmol/L (22-30); Chloride 100 mmol/L (98-107); Estimated CRCL calculation 103 ml/min; Estimated Glomerular Filt Rate > 60; Glucose 88 mg/dL (65-110); Lipase 315 U/L (23-300); Potassium 3.6 mmol/L (3.4-5.0); Sodium 141 mmol/L (137-145)
[2022-12-25 19:00] LABS: RBC Urine >75 /hpf (0-2); Squamous Epithelial Cell Urine Occasional /hpf (Few)
[2022-12-25 19:06] LABS: Ethanol 370 mg/dL (<10)
[2022-12-25 19:15] LABS: Urine Pregnancy Test Negative
[2022-12-25 19:21] LABS: Pregnancy On Board Control Positive
[2022-12-25 19:31] LABS: Amphetamine Screen Urine Negative (Negative); Barbiturate Screen Urine Negative (Negative); Benzodiazepines Screen Urine Negative (Negative); Cannabinoid Screen Urine Negative (Negative); Cocaine Screen Urine Negative (Negative); Methadone Screen Urine Negative (Negative); Opiate Screen Urine Negative (Negative); Phencyclidine Screen Urine Negative (Negative)
[2022-12-25 19:33] VITALS: BP 130/87; PULSE 99; RESP 16; O2SAT 100
[2022-12-25 22:30] VITALS: BP 108/62; PULSE 85; RESP 16; O2SAT 98
== END 2022-12-25 22:35 | disposition home or self-care (01) ==
PROVIDERS: Emergency Provider Emergency Medicine; PCP Family Medicine
DX: F10.229 Alcohol dependence with intoxication, unspecified (principal); Y90.8 Blood alcohol level of 240 mg/100 ml or more; I10 Essential (primary) hypertension; K21.9 Gastro-esophageal reflux disease without esophagitis; F17.210 Nicotine dependence, cigarettes, uncomplicated
CPT/HCPCS: 36415; 80053; 80307; 81001; 81025; 83690; 85025; 96361; 96374; 96375; 99284; A9270; J2060; J7030

== ENCOUNTER 2025-08-15 14:17 | Outpatient (CLI) | payer OTHER, SELFPAY ==
--- NOTE | ~2025-08-15 | XR_ITS ---
XR lumbar spine 2-3V Indication: chronic primary low back pain AP/LAT ONLY PER ORDER Comparison: None Findings: The vertebral heights are intact. No fracture or subluxation. Severe loss of disc height at L5-S1. Soft tissues unremarkable Impression: No acute abnormality. Reviewed, dictated and finalized at location A. Impression: No acute abnormality.
--- OUTSIDE RECORDS SUMMARY | 2025-08-15 16:01 | XMS_ITS | Clinical Summary ---
Author Organization [facility] Address [address] [place] [address] Care Team Providers Care Kennel Assistant Name Role Phone Unavailable Primary Care Provider Unavailabl e Social History Tobacco Use Types Packs/Day Years Used Date Smoking Tobacco: Never Assessed Comments Unknown Sex and Gender Information Value Date Recorded Sex Assigned at Not on file Legal Sex Female 4:46 PM CDT Gender Identity Not on file Sexual Orientation Not on file Plan of Treatment Health Maintenance Due Date Last Done Comments Cervical Cancer Screening Pa p Smear (Age 30 to 64) Every 3 Years 1982 Annual Physical 1985 Hepatitis C 2000 DTaP, Tdap and Td Vaccines ( 1 - Tdap) 2001 Hepatitis B Vaccines (1 of 3 - 19+ 3-dose series) 2001 HPV Vaccines (1 - 3-dose SCD M series) 2009 Cervical Cancer Screening Pa p with HPV Testing (Age 30 to 64) Every 5 Years 2012 Cervical Cancer Screening with HPV 2012 Mammogram Screening 2022 PHQ-2 (Physician [place]) 11/30/2024 COVID-19 Vaccine (2023-2 5 season) 2025 Meningococcal B Vaccine Aged Out No l onger eligible based on patient's age to complete this topic Meningococcal Vaccine Aged Out No roger gerhard eligible based on patient's age to complete this topic Pneumococcal Vaccine: Pediat rics (0 to 5 Years) and At-Risk Patients (6 to 49 Years) Aged Out No longer eligible b ased on patient's age to complete this topic RSV Immunizations Under 20 Months Aged Out No longer eligible based on patient's age to complete this topic Insurance MICHELLE Advance Directives Documents on File Type Date Recorded Patient Configuration Management Specialist Expl anation Advance Directives and Living Will 03/29/2019 12:00 AM ADVANCED DIRECTIVES
--- OUTSIDE RECORDS SUMMARY | 2025-08-15 16:01 | XMS_ITS | Clinical Summary ---
Author Organization [facility] Address [address] [place] [address] Care Team Providers Care Pallet Repairer Name Role Phone Ros Lopez MD Primary Care Provider [phone] [facility],non-owned Affiliates and Associated Physician Practices is amultiple site organization consisting of ambulatory clinics and hospital sitesin [place], [place], [place] and [place]. This disclosure is being madepursuant to the Care Everywhere program and may not contain all information available regarding this patient. Last updated 18.[employer] [facility] Allergies No known active allergies Medications * Be aware that medications may not be up to date on this document. Alwaysverify current medications with the patient. No known medications Social History Tobacco Use Types Packs/Day Years Used Date Smoking Tobacco: Every Day Smokeless Tobacco: Never Comments No Sex and Gender Information Value Date Recorded Sex Assigned at Not on file Legal Sex Female 7:18 AM CDT Gender Identity Not on file Sexual Orientation Not on file Last Filed Vital Signs Vital Sign Reading Time Taken Comments Blood Pressure 154/106 02/17/2017 11:05 AM CDT Pulse 95 02/17/2017 11:05 AM CDT Temperature 36.9 C (98.4 F) 02/17/2017 11:05 AM CDT Respiratory Rate 16 02/17/2017 11:05 AM CDT Oxygen Saturation 99% 02/17/2017 11:05 AM CDT Inhaled Oxygen Concentration - - Weight 59 kg (130 lb) 02/17/2017 11:05 AM CDT Height 167.6 cm (5' 6) 02/17/2017 11:05 AM CDT Body Mass Index 20.98 02/17/2017 11:05 AM CDT Plan of Treatment Health Maintenance Due Date Last Done Comments LIPID TESTING 1982 MAMMOGRAM 1982 HIV SCREENING 1997 HEPATITIS C SCREENING 04/22/2000 DTAP/TDAP/TD VACCINES (1 - Tdap) 2001 HEPATITIS B VACCINE (1 of 3 - 19+ 3-dose series) 2001 HPV VACCINE (1 - 3-dose SCDM series) 2009 DEPRESSION SCREENING 11/30/2024 COVID-19 VACCINE (1 - 2023-2 5 season) 2025 INFLUENZA VACCINE (#1) 2025 ZOSTER VACCINE (1 of 2) 2032 HIB VACCINE Aged Out No longer eligi ble based on patient's age to complete this topic MENINGOCOCCAL (Group B) VACC INE SHARED DECISION-MAKING Aged Out No longer eligibl e based on patient's age to complete this topic MENINGOCOCCAL GROUPS A/C/Y/W VACCINE Aged Out No longer eligible b ased on patient's age to complete this topic PNEUMOCOCCAL VACCINE Aged Out No long er eligible based on patient's age to complete this topic [place] [address] [place] [address] [facility] Care Teams Pallet Repairer Relationship Specialty Start Date End Date Ros Lopez MD [facility] [place] [id number] PCP - General 07/17/22
--- OUTSIDE RECORDS SUMMARY | 2025-08-15 16:01 | XMS_ITS | Clinical Summary ---
Author Organization [facility] Address [address] [place] [address] Care Team Providers Care Custom Tailor Name Role Phone Unknown, Notinfile Primary Care Provider Unavail able Allergies No known active allergies Medications pantoprazole DR (PROTONIX) 40 mg EC tablet TK 1 T PO QD 1 9 Active NARCAN 4 mg/actuation spray,non-aeros ol JONATHAN REP ALN 0 9 Active gabapentin (NEURONTIN) 300 mg capsule gabapentin 300 mg capsule TAKE 1 CAPSULE BY MOUTH THREE TIMES DAILY Active traMADoL (ULTRAM) 50 mg tablet Take 1 tablet (50 mg total) by mouth 3 (three) times a day as needed [address] (CYMBALTA) 30 mg capsuleIndicati ons:Anxiety with Depression Take 1 capsule (30 mg total) by mouth daily for 7 days Then increase to 60mg daily 7 capsule [address] (CYMBALTA) 60 mg capsuleIndicati ons:Anxiety with Depression Take 1 capsule (60 mg total) by mouth daily 30 capsule [address] (VOLTAREN) 75 mg EC tablet TAKE 1 TABLET(75 MG) BY MOUTH TWICE DAILY NEEDED FOR PAIN 60 tablet 1 5 Active metoprolol XL (TOPROL-XL) 25 mg extended release tablet Take 1 tablet (25 mg total) by mouth daily 90 tablet 1 5 Active cyclobenzaprine (FLEXERIL) 10 mg tablet Take 1 tablet (10 mg total) by mouth nightly at bedtime 90 tablet 1 5 Active Active Problems Problem Noted Date Diagnosed Date RLS (restless legs syndrome) 08/24/2024 Assessment & Plan (08/24/2024 2:18 PM CDT): Stable. Takes gabapentin 600mg three times daily. Will continue Chronic bilateral low back pain without sciatica 08/24/2024 Assessment & Plan (08/24/2024 2:39 PM CDT): I told her that I do not prescribe chronic pain medication. I would refer her to pain management but they were other better options to manage her chronic pain. She states she had 1 x-ray of her lumbar spine a couple years ago. She did 1 episode of physical therapy. She was told she had degenerative arthritis and did not have any further therapy. Will repeat an x-ray of her lumbar spine. I discussed that maybe she needed an MRI and there were other therapies available. Will refer her to pain management. Patient states that she did not think that tramadol was helping much anyway and she had not taken any today. She is going to try to discontinue it. I did change her to diclofenac 75 mg twice daily instead of the naproxen that she was on. Alcohol dependence, uncomplicated 04/05/2021 Assessment & Plan (08/24/2024 2:39 PM CDT): We discussed medication options. We discussed Vivitrol. We discussed how naltrexone works. She is currently taking tramadol from a previous PCP. I discussed that she can not be on any chronic opioid medications as naltrexone blocks the effects of opiates as well as alcohol. Patient is going to think about this. I gave her a link to the website for Vivitrol and information on Vivitrol through her [employer] print out. She is starting counseling as well. I discussed the Vivitrol with Dr. De Leon and his staff who would be administering the injection at his office Essential hypertension 02/06/2021 Assessment & Plan (08/24/2024 2:19 PM CDT): Stable/ Improved. Blood pressure is adequately controlled on Metoprolol . We will not make any medication changes today. Will have her follow-up in 6 months for continued monitoring and management Moderate episode of recurrent major depressive d isorder 02/06/2021 Overview (08/24/2024): Zoloft, lexapro, buspar, abilify, Prozac, wellbutrin xl On zoloft and prozac, about a year each - didn't notice much of a difference Lexapro - was on the longest - may have helped a little, but then eventually stopped working. Assessment & Plan (08/24/2024 2:20 PM CDT): Discussed starting a medication and pt is agreeable. Will start dloxetine 30mg, increasing to 60mg daily . Discussed starting dose and titration to full dose, possible SE and time frame for expected results. Call if any suicidal thoughts or questions concerning SE. Do not abruptly stop medication without calling office. Follow up in 3-4 weeks for recheck and continuation of medications. Resolved Problems Problem Noted Date Diagnosed Date Resolved Date Depressive disorder 04/21/2017 08/24/20 24 Immunizations Immunization Administration Dates Next Due Influenza, Unspecified 08/24/2024(Deferr ed: Patient Refused),11/30/2023(Deferred: Patient Refused) Medical History Medical History Date Comments Restless leg Anxiety Depression PTSD (post-traumatic stress disorder) Acid reflux Hypertension Neuropathy Family History Medical History Relation Name Comments No Known Problems Father No Known Problems Mother Relation Name Status Comments Father Mother Social History Tobacco Use Types Packs/Day Years Used Date Smoking Tobacco: Former Cigarettes Smokeless Tobacco: Never Tobacco Cessation:Counseling Given: Not Answered Alcohol Use Standard Drinks/Week Comments Not Currently 0 (1 standard drink = 0.6 oz pur e alcohol) sober PHQ-2 Answer Date Recorded PHQ-2 Total Score (If total score is 3 or more points, staff should administer the PHQ-9) 0 08/24/2024 Personal Safety Answer Date Recorded Getting School Help Needed Not on file 02/13 Comments Unknown Sex and Gender Information Value Date Recorded Sex Assigned at Not on file Legal Sex Female 10:19 AM CDT Gender Identity Not on file Sexual Orientation Not on file Obstetrics History Last Filed Vital Signs Vital Sign Reading Time Taken Comments Blood Pressure 120/74 08/24/2024 1:47 PM CDT Pulse 83 08/24/2024 1:47 PM CDT Temperature 36.8 C (98.2 F) 08/24/2024 1:47 PM CDT Respiratory Rate 16 08/20/2019 4:43 PM CDT Oxygen Saturation 100% 08/20/2019 4:43 PM CDT Inhaled Oxygen Concentration - - Weight 70.1 kg (154 lb 9.6 oz) 08/24/2024 1:47 P M CDT Height 167.6 cm (5' 6) 08/24/2024 1:47 PM CDT Body Mass Index 24.95 08/24/2024 1:47 PM CDT Plan of Treatment Health Maintenance Due Date Last Done Comments Breast Cancer Screening-Mammogram 1982 Cervical Cancer Screening 1982 DTaP/Tdap/Td Vaccine (1 - Tdap) 1993 Varicella Vaccines (1 of 2 - 13+ 2-dose series) 1995 Hepatitis B Screening 2000 Regular Well Visit/Exam 18-64 2000 HPV Vaccines (1 - 3-dose SCD M series) 2009 Influenza Vaccine (#1) 2025 Depression Screening 08/24/2025 08/24/2024 Hepatitis C Screening Completed 08/24/2024 Pneumococcal vaccine <65 Aged Out No longer eligible based on patient's age to complete this topic Procedures Procedure Name Priority Date/Time Associated Diagnosis Comments HEPATITIS C ANTIBODY Routine 08/24/2024 12:00 PM CDT Encounter for hepatitis C screening test for low risk patient from Last 3 Months or Most Recently Relevant to Health Maintenance Results * Hepatitis C antibody Blood (08/24/2024 12:00 PM CDT) Hep C Ab Nonreactive Nonreactive Comment: Interpretive Data Nonreactive: Antibodies to HCV not detected. Does NOT exclude the possibility of recent exposure to HCV. Equivocal: Equivocal for HCV antibodies. Supplemental molecular testing will be automatically performed to determine infection status in accordance with current CDC screening recommendations. Reactive: Positive for HCV antibodies. This may represent current or past HCV infection. Supplemental molecular testing will be automatically performed to determine current infection status in accordance with current CDC screening recommendations. Interpretive data was last revised on 2020. Blood 08/24/2024 12:0 0 PM CDT 08/24/2024 9:45 PM CDT Estephania Fajardo NP LAB MICROBIOLOGY - GENERAL OR DERABLES Final Result Performing Organization Address City/State/ZIP Co tx Phone Number [place] [phone] [facility] Department [place] [address] from Last 3 Months or Most Recently Relevant to Health Maintenance Insurance [facility] Care Teams Custom Tailor Relationship Specialty Start Date End Date Unknown, Notinfile PCP - General 04/04/25
== END 2025-08-15 14:18 | disposition home or self-care (01) ==
PROVIDERS: PCP Physician Assistant; Visit Provider Physician Assistant
DX: M54.59 Other low back pain (principal); G89.29 Other chronic pain
CPT/HCPCS: 72100

== ENCOUNTER 2025-09-26 08:50 | Outpatient (CLI) | payer OTHER, SELFPAY ==
--- OUTSIDE RECORDS SUMMARY | 2025-09-26 09:20 | XMS_ITS | Clinical Summary ---
Author Organization [facility] Address [address] [place] [address] Care Team Providers Care Feed And Farm Management Adviser Name Role Phone Luz Maria Meeks Primary Care Provider [phone] Allergies No known active allergies Medications pantoprazole [...] at bedtime 90 tablet 1 5 Active amoxicillin (AMOXIL) 875 mg tabletIndicatio ns:Strep throat Take 1 tablet (875 mg total) by mouth 2 (two) times a day for 10 days 20 tablet 09/17/20 25 Active Problems Problem Noted Date Diagnosed Date [...] Vivitrol and information on Vivitrol through her [employer] print out. She is starting counseling as [...] Resolved Date Depressive disorder 04/21/2017 08/24/20 24 Encounters Date Type Department Care Team Description 09/07/2025 6:30 PM CDT Office Visit [facility] at [address] [address] Anny Maldonado NP Strep throat (Primary Dx) from Last 3 Months Immunizations Immunization Administration Dates Next Due Influenza, [...] staff should administer the PHQ-9) 0 08/24/2024 Comments Unknown Sex and Gender Information Value Date Recorded Sex Assigned at Not on file Legal Sex Female 10:19 AM CDT Gender Identity Not on file Sexual Orientation Not on file Obstetrics History Last Filed Vital Signs Vital Sign Reading Time Taken Comments Blood Pressure 128/90 09/07/2025 6:38 PM CDT Pulse 105 09/07/2025 6:38 PM CDT Temperature 37.2 C (99 F) 09/07/2025 6:38 PM CDT Respiratory Rate 20 09/07/2025 6:38 PM CDT Oxygen Saturation 99% 09/07/2025 6:38 PM CDT Inhaled Oxygen Concentration - - Weight 72.2 kg (159 lb 1.6 oz) 09/07/2025 6:38 P M CDT Height 167.6 cm (5' 6) 08/24/2024 1:47 PM CDT Body Mass Index 25.68 08/24/2024 1:47 PM CDT Plan of Treatment [...] Procedure Name Priority Date/Time Associated Diagnosis Comments POCT RAPID STREP Routine 09/07/2025 6:47 PM CDT Strep throat HEPATITIS C ANTIBODY Routine 08/24/2024 12:00 PM CDT Encounter for hepatitis C screening test for low risk patient from Last 3 Months or Most Recently Relevant to Health Maintenance Results * (ABNORMAL) POCT rapid strep A (09/07/2025 6:47 PM CDT) Rapid Strep A, POC Positive(A ) Negative Swab 09/07/2025 6:47 PM CDT Anny Maldonado NP POINT OF CARE TEST ORDERABLES Final Result * Hepatitis C antibody Blood (08/24/2024 12:00 [...] MICROBIOLOGY - GENERAL OR DERABLES Final Result [facility] [address] [place] [address] from Last 3 Months or Most Recently Relevant to Health [place] [address] [facility] Care Teams Feed And Farm Management Adviser Relationship Specialty Start Date End Date Luz Maria Meeks PA [address] [place] [address] PCP - General Physician Digital Media Associate 09/07/25
--- OUTSIDE RECORDS SUMMARY | 2025-09-26 09:20 | XMS_ITS | Clinical Summary ---
Author Organization [facility] Address [address] [facility] [place] [address] Care Team Providers Care Motor Equipment Captain Name Role Phone Ros Lopez MD Primary Care Provider [phone] Source Comments [facility],non-owned Affiliates and Associated Physician Practices is amultiple site organization consisting of ambulatory clinics and hospital sitesin [place], [place], [place] and [place]. This disclosure is being madepursuant to the Care Everywhere program and may not contain all information available regarding this patient. Last updated 18.[facility] Allergies No known active allergies Medications * [...] patient's age to complete this topic [place] [address] [place] [address] [facility] Care Teams Motor Equipment Captain Relationship Specialty Start Date End Date Ros Lopez MD [facility] [place] [id number] PCP - General 07/17/22
--- OUTSIDE RECORDS SUMMARY | 2025-09-26 09:21 | XMS_ITS | Clinical Summary ---
Author Organization [facility] Address [address] [place], [place] [id number] Care Team Providers Care Ui Software Developer Name Role Phone Unavailable Primary Care Provider [...] HPV 2012 Mammogram Screening 2022 PHQ-2 (Physician [place]) 11/30/2024 COVID-19 Vaccine ( - 2024-2 6 season) 2025 Influenza Adult (#1) 2025 Hepatitis A Vaccines Aged Out No long er eligible based on patient's age to complete this topic Meningococcal B Vaccine Aged Out No l [...] patient's age to complete this topic Insurance [employer] Advance Directives Documents on File Type Date Recorded 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
--- NOTE | 2025-10-18 07:59 | P.SLEEP_ITS ---
Sleep Study Date of Study: 09/26/25 Ordering Provider: Luz Maria MeeksJAM Interpreting Physician: Aaliyah Mahoney DO Sleep Study Type: Polysomnogram Height: 1.68 m Weight: 72.121 kg Body Mass Index: 25.7 Neck Circumference (inches): 14 [place]: 0 Reason for Sleep Study Difficulty sleeping Sleep History The patient is a 45-year-old female that had a sleep study ordered by her primary care for evaluation sleep apnea. The patient occasionally awakens from sleep short of breath. She occasionally awakens at night with heartburn, belching or cough. She occasionally snores and is occasionally loud enough that others complain. She frequently has trouble sleeping when she has a cold. She occasionally wakes up gasping for air throughout the night. She occasionally has breathing problems at night observed by herself or others. She occasionally sweats excessively at night. She frequently has heart palpitations or irregular heartbeats during the night. She rarely falls asleep during the day but never while driving. She denies cataplexy. She rarely has trouble at school or work due to sleepiness. She rarely feels unable to move while waking up or falling asleep. She occasionally experiences vivid dreamlike scenes upon awakening or falling asleep. She rarely feels afraid of going to sleep. She rarely has nightmares. She rarely remembers her dreams. She frequently has thoughts racing through her mind. She frequently feels sad or depressed. She constantly has anxiety. She occasionally has muscular tension. She constantly notices parts of her body jerk. She constantly kicks during the night. She constantly has crawling and aching feelings in her legs and frequently has leg pain during the night she occasionally grinds her teeth during sleep but rarely awakens with morning jaw pain. She is constantly bothered by pain during the day and frequently awakened by pain during the night. She constantly wakes up feeling stiff in the morning. She constantly wakes up with sore or achy muscles. She frequently wakes up with pain in the neck, spine other joints. She goes to bed at 11:00 p.m. every day. It takes her 4 hours to fall asleep. She wakes up 4-5 times throughout the night for unknown reasons and it can take her 30 minutes to fall back asleep. She wakes up at 8:00 a.m. every morning. She typically gets 2-3 hours of sleep per night. She currently lives with her 5-year-old child. She denies consuming any caffeinated beverages within 2 hours of bedtime. She denies engaging in physical exercise before bedtime. He will watch television before falling asleep. She will take naps in afternoon or the evening but they are not refreshing. She consumes 1 caffeinated beverage per day. She is a former smoker. She consumes 2-3 alcoholic beverages per day. She denies recreational drug use. [facility] Past Medical History Medical History GERD (gastroesophageal reflux disease) Dysphagia Odynophagia History of hypertension History of alcohol abuse Family History Family History Grandparent Depression Mother Depression Other Diabetes mellitus Social History Social History Smoking packs per day: 5 Smoking cigarettes per day: 100.0 Smoking status: Current every day smoker Alcohol intake: current Substance use: never Substance use type: does not use Last use: Drinks 3-4 bottles of wine daily Spiritual care concerns: No Medications Home Medications ?Medication ?Instructions ?Recorded ?Confirmed ?Type gabapentin 100 mg capsule 300 mg PO TID 07/13/2207/13 History metoprolol succinate 25 mg 25 mg PO DAILY 07/13/22 History tablet,extended release 24 hr pantoprazole 40 mg tablet,delayed 40 mg PO Q12HR #60 t abs 07/15/22 Rx release chlordiazepoxide HCl 25 mg capsule 25 mg PO Q8-12H PRN alcohol 12/25/22 Rx withdrawal #11 caps Sleep Procedure This test was performed using the [employer] multiple channel system including EOG, EEG, submental EMG, EKG, nasal and oral airflow using thermistors and nasal pressure sensors, chest and abdominal belts for body position data, and pulse oximetry. Video monitoring was also performed. The study was scored using CMS guidelines. Sleep Architecture The total recording time was 137.9 minutes.? The total sleep time was 0 minutes. Respiratory Analysis N/A Arousals N/A Periodic Limb Movements N/A Oximetry Data The patient had an average oxygen saturation of 94% while awake with a minimum oxygen saturation of 88% and a maximum oxygen saturation of 98%. Snoring Profile N/A Cardiac Profile The EKG showed normal sinus rhythm.?The patient was tachycardic (HR>90 bpm) for the entire study. The patient had an average pulse rate of 133.1 bpm with a minimum pulse of rate of 114.0 bpm and a maximum pulse rate of 151.0 bpm.? EEG Profile No signs of seizure activity seen. Assessment and Plan Assessment and Plan (1) Sleep disturbances: Code(s): G47.9 - Sleep disorder, unspecified Status: Acute Assessment and Plan: The patient was unable to fall asleep during this study. The total recording time was 137.9 minutes. The patient left AMA. I recommend that the patient have a home sleep study, as she may be more comfortable in her regular environment and may be able to fall asleep. I would also consider CBT-Insomnia. The patient's sleep history is somewhat suggestive of Restless Leg Syndrome. I recommend that the patient have a serum ferritin drawn for evaluation of iron deficiency anemia. If the patient has a serum ferritin less than 75 ng/mL, I recommend starting a daily iron supplement and a Vitamin C supplement for better absorption. If the serum ferritin is greater than 75 ng/mL, I recommend starting a dopamine agonist and titrating the dose until symptoms resolve. There are nonpharmacological methods to treat limb movements including daily exercise, stretching calf muscles before bed, avoiding excessive amounts of caffeine and alcohol, vitamin B supplementation, magnesium lotion massaged into legs before bed, and use of a weighted blanket. Data The data obtained during this sleep study is NOT adequate for interpretation. Certification This sleep study has been reviewed by a board certified sleep medicine ph ysician.
[2025-10-18 09:05] VITALS: BMI 25.7
== END 2025-09-27 01:43 | disposition home or self-care (01) ==
PROVIDERS: PCP Physician Assistant; Visit Provider Physician Assistant
DX: F51.01 Primary insomnia (principal); G47.9 Sleep disorder, unspecified
CPT/HCPCS: 95810